=== PATIENT | female | born 1995 | race Caucasian/White ===

== ENCOUNTER 2017-07-04 21:15 | Emergency (ER) | payer BC ==
[~2017-07-04] VITALS: Ht 170.2 cm; Wt 70.3 kg
--- NOTE | ~2017-07-04 | EKG ---
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 : 1995 Requested By: Karoline Vargas Order Number: [id number] MD: Owen German Measurements Intervals [place] Rate: 115 P: 58 [place]: 124 QRS: 86 QRSD: 76 T: -89 QT: 455 QTc: 630 Interpretive Statements Sinus tachycardia Borderline repolarization abnormality Prolonged QT interval No previous ECG available for comparison Electronically Signed On 07-05-2017 8:26:45 CDT by Owen German [email or web address] <ELECTRONICALLY SIGNED> By: Owen German MD, [facility] 07/05/17 0826 2130 2130 Owen German MD, FACC /EPI
[2017-07-04 21:53] LABS: ABSOLUTE NEUTROPHILS 4.7 thou/uL (1.4-8.2); EOSINOPHILS 3.4 % (0.0-3.0); HEMATOCRIT 40.2 % (37.0-47.0); HEMOGLOBIN 13.8 gm/dL (12.0-15.0); LYMPHOCYTES 36.9 % (24.0-44.0); MCH 30.6 pg (26.0-34.0); MCHC 34.4 g/dL (28.0-37.0); MCV 88.9 fL (80.0-100.0); MONOCYTES 8.8 % (1.0-8.0); PLATELET COUNT 322 thou/uL (150-400); POLYS 49.9 % (36.0-66.0); RBC 4.52 mil/uL (4.20-5.00); RDW 12.9 % (10.5-14.5); WBC 9.4 thou/uL (4.0-11.0)
[2017-07-04 21:54] LABS: MANUAL DIFF NO
[2017-07-04 22:00] LABS: ANION GAP 7 mmol/L (7-16); BUN 14 mg/dL (7-18); CALCIUM 9.2 mg/dL (8.5-10.1); CHLORIDE 106 mmol/L (98-107); CO2 26 mmol/L (21-32); GLUCOSE 111 mg/dL (74-106); POTASSIUM 3.2 mmol/L (3.5-5.1); SODIUM 139 mmol/L (136-145)
[2017-07-04 22:08] LABS: TROPONIN-I < 0.04 ng/mL (<0.04-0.07)
[2017-07-04] MEDS ORDERED: NORCO 5-325 TA1 EACH PO (22:09)
[2017-07-04 22:51] VITALS: BP 121/72
== END 2017-07-04 22:52 | disposition home or self-care (01) ==
LOC: ER 21:15
PROVIDERS: Emergency Medicine
DX: R09.1 Pleurisy (principal); R07.89 Other chest pain; E87.6 Hypokalemia

== ENCOUNTER 2017-07-10 10:39 | Emergency (ER) | payer BC ==
[~2017-07-10] VITALS: Ht 170.2 cm; Wt 70.3 kg
--- NOTE | ~2017-07-10 | EKG ---
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
[~2017-07-10 10:39] MED LIST: NORCO 5-325 TA1 EACH PO
[2017-07-10] MEDS ORDERED: PREDNISONE 10 M10 MG PO (10:42)
[2017-07-10] MEDS ORDERED: LAMICTAL XR50 MG PO (10:42)
[2017-07-10] MEDS ORDERED: ACUTANE PO (10:43)
[2017-07-10] MEDS ORDERED: CLONAZEPAM 0.50.5 M1 PO (10:43)
[2017-07-10] MEDS ORDERED: ABILIFY 2 MG2 M1 PO (10:43)
[2017-07-10] MEDS ORDERED: BEYAZ 28 TABLE1 EACH PO (10:43)
[2017-07-10 11:07] LABS: ABSOLUTE NEUTROPHILS 6.7 thou/uL (1.4-8.2); BASOPHILS 0.8 % (0.0-2.0); EOSINOPHILS 1.4 % (0.0-3.0); HEMATOCRIT 41.6 % (37.0-47.0); HEMOGLOBIN 14.1 gm/dL (12.0-15.0); LYMPHOCYTES 29.6 % (24.0-44.0); MCH 30.6 pg (26.0-34.0); MCHC 33.8 g/dL (28.0-37.0); MCV 90.6 fL (80.0-100.0); PLATELET COUNT 324 thou/uL (150-400); POLYS 59.2 % (36.0-66.0); RBC 4.59 mil/uL (4.20-5.00); RDW 12.9 % (10.5-14.5); WBC 11.3 thou/uL (4.0-11.0)
[2017-07-10 11:09] LABS: MANUAL DIFF NO
[2017-07-10 11:15] LABS: CALCIUM 9.1 mg/dL (8.5-10.1); CREATININE 0.9 mg/dL (0.6-1.0); POTASSIUM 4.1 mmol/L (3.5-5.1)
[2017-07-10 11:21] LABS: ALBUMIN 3.8 g/dL (3.4-5.0); TOTAL BILIRUBIN 0.3 mg/dL (<0.1-1.0); TOTAL PROTEIN 7.9 g/dL (6.4-8.2)
[2017-07-10] MEDS ORDERED: PREDNISONE 20 M20 MG PO (13:37)
[2017-07-10] MEDS ORDERED: TORADOL 10 MG T10 MG PO (13:37)
[2017-07-10 14:06] VITALS: BP 118/70
== END 2017-07-10 14:08 | disposition home or self-care (01) ==
LOC: ER 10:39
PROVIDERS: Physician Assistant
DX: R09.1 Pleurisy (principal); R07.89 Other chest pain